=== PATIENT | female | born 1965 | race Caucasian/White ===

== ENCOUNTER 2016-10-18 08:43 | Day surgery (SDC) | payer OTHER ==
[~2016-10-18] VITALS: Ht 167.6 cm; Wt 70.3 kg
[~2016-10-18 08:43] MED LIST: ASPI-973 PO; FERR325T40 PO; HYDR200T5 PO; LISI2.5T PO; Lactated Ringer's 1,000 ML IV ONE; Lactated Ringer's 1,000 ML IV SCH; METF500T4 PO; MYCO500T PO; PANT40TA2 PO; PRE10 PO; SITA100T12 PO; SITA1TAB2 PO; [UNRECOGNIZED DRUG - CODE] PO
[2016-10-18] MEDS ORDERED: Propofol 10,000 mCg/mL 20 mL Inj ONE (08:44)
[2016-10-18 09:23] VITALS: BP 134/88; PULSE 85; RESP 14; O2SAT 100
[2016-10-18] MEDS ORDERED: INSU100I13 SUBQ (09:30)
--- NOTE | 2016-10-18 10:12 | PCM.HPANE ---
Patient Data Surgeon Admitting Provider: Attending Provider:Keenan Holbrook MD Primary Care Physician:Rafael Martel Other Provider:Doreen Trujillo Anesthesia Reason for Visit GERD Ht/WT & BMI Height (Feet): 5 Height (Inches): 6 Weight (Kilograms): 70.31 Body Mass Index 24.00 Allergies Coded Allergies: No Known Drug Allergies (Verified Allergy, Unknown, 10/16/16) Past Anesthesia History Anesthesia History: Denies:: Abnormal Airway, Anesthesia Reactions, Difficult Intubation, Fam Anesthesia Reaction, Fam Malignant Hypertherm, Malignant Hyperthermia Diabetes History Hx Diabetes?: Yes Current Bedside Blood Glucose: 91 MRSA 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) Medications Blood Thinner: Aspirin Home Meds Incl Beta Hoang: No Reported Medications Insulin Glargine (Lantus U100 Solostar Insulin Pen)100 Unit/1 Ml Insuln.pen28 Unit SUBQ DAILY #1 PENINJ Ref 0 10/18/16 Prednisone (PredniSONE)10 Mg Cmwrjj89 Mg PO DAILY Ref 0 10/16/[address] (Protonix)40 Mg Qxqbas34 Mg PO DAILY Ref 0 10/16/16 Nifedipine ER (Procardia XL)90 Mg Fdnlit32 Mg PO DAILY Ref 0 10/16/16 Lisinopril 2.5 Mg Tablet2.5 Mg PO DAILY 30 Days Ref 0 10/16/16 Sitagliptin/Metformin 50-500 mg (Janumet 50-500 mg)1 Each Tablet1 Tablet PO BID 10/16/16 Ferrous Sulfate (Iron)325 Mg Cemhnr635 Mg PO 10/16/16 Hydroxychloroquine Sulfate 200 Mg Yyhzcm354 Mg PO DAILY #30 TABLET Ref 0 10/16/16 Mycophenolate Mofetil (Cellcept)500 Mg Htoumu298 Mg PO 10/16/16 Aspirin 81 Mg Meedtn23 Mg PO DAILY Ref 0 10/16/16 Discontinued Reported Medications Metformin 500 Mg Hpcgxq859 Mg PO BID Ref 0 10/16/16 Sitagliptin Phos (Januvia)100 Mg Jidvze682 Mg PO DAILY Ref 0 10/16/16 Last Time Dose Received Took protonix today; no other meds No missed doses of prednisone History History of ENT Problems?: No HEENT History: Denies:: Abnormal Airway Difficult Intubation Dysphagia Hearing Problem Denture Type: None Teeth Condition: Within Normal Limits Hx of Heart Problems?: Yes Cardiovascular History: Positive for:: Hypertension Denies:: AICD Atrial Fibrillation Chest Pain Pacemaker Valvular Heart Disease Other Cardiac History: HX OF TACHYCARDIA Other History/Comments No CP Hx of Respiratory Problem?: Yes Respiratory History: Positive for:: Hemoptysis Pneumonia Denies:: Asthma COPD Tuberculosis Other Resp Pertinent History: INTERSTITAL LUNG DISEASE R/T AUTOIMMUNE DISORDER Other History/Comment Breathing is at baseline Hx Neurologic Problems?: No Neurological History: Denies:: CVA Hx of GI Problems?: Yes Other History/Comment GERD - no current sx's Hx of Problems?: No Female Hx: Denies:: Currently Hx Musculoskeletal Problems?: Yes Musculoskeletal History: Positive for:: Joint Replacement (R FINGER JOINT) Denies:: Fibromyalgia Other History/Comment dermatomyositis; affects joints Psycho Social History: Denies:: Anxiety Hx Depression Hx Surgeries?: Yes (BILAT FINGER AMPUTATION, R METATARSIL JOINT REPLACEMENT) Hx Any Other Health Problems?: Yes Hx Diabetes: YesBedside Blood Glucose: 91 Hx Alcohol Use: Yes (RARE) Stop/Bang Treated for Sleep Apnea?: No Do You Have a CPAP Machine?: No S-Snoring: Do You Snore Loudly: No T-Tired: feel tired, fatigued: Yes O-Obsered: Observed not breath: No P-Blood Pressure: treated: Yes B- Body Mass Index > 35 kg/m2: No A- Age over 50: No N- Neck Large Circumference: No G- Gender Male: No RACHANA Total Score: 2 Risk Assessment Category Category 1A: Patient has history of documented sleep apnea, and HAS NOT received any narcotic, sedative or anesthesia administration during this stay. Category 1B: Patient has history of documented sleep apnea, and HAS received any narcotic , sedative or anesthesia administration during this stay Category 2: Patient has SUSPECTED Obstructive Sleep Apnea, and HAS received any narcotic , sedative or anesthesia administration during this stay. Category 3: Patient has SUSPECTED Obstructive Sleep Apnea and HAS NOT received narcotic, sedative or anesthesia administration during this stay. Category 4: Outpatient in Procedural Areas with known sleep apnea or who screen positive for High Risk via the STOP/BANG questionnaire. Exam Exam Vital Signs Vital Signs Date Time Temp Pulse Resp B/P Pulse Ox O2 Delivery O2 Flow Rate FiO2 10/18/16 09:23 36.3 85 14 134/88 100 Room Air General Appearance: Alert, Oriented X3 HEENT/AIRWAY: MP 2, Neck Movement (FROM) Lungs: Clear to Auscultation, Clear to Percussion Heart: Exam Unremarkable, Regular Rate/Rhythm Meds/Labs/Diagnostics Bedside Blood Glucose: 91 Plan Impression Patient chart reviewed, patient interviewed and anesthestic plan with risks, benefits, and alternatives discussed, and informed consent obtained. ASA Physical Status: ASA3 Severe Disease (dermatomyositis) Anesthetic Plan: MAC Bene/Risks/Altern/Consents: Yes HP Complete Prior to Induction: Yes Dylan Hurtado MD Oct 18, 2016 10:12
--- NOTE | 2016-10-18 10:30 | PCM.ANEP1 ---
Post Anesthesia PACU Phase 1 Assessment Vital Signs Vital Signs Date Time Temp Pulse Resp B/P Pulse Ox O2 Delivery O2 Flow Rate FiO2 10/18/16 09:23 36.3 85 14 134/88 100 Room Air Anesthetic Administered: MAC Level of Alertness: Awake, talking QUIROZ's with Equal Strength: Yes Pain: No Nausea or Vomiting: No CV Function & Hydration Stable: Yes Airway Device: Oxygen Delivery: Room Air Lungs: Clear to Auscultation, Clear to Percussion PACU Phase 2 Assessment Complications: No Follow up Care: No Patient Instructions Provided: N/A Comments See anesth record for PACU VS. PACU VSS Dylan Hurtado MD Oct 18, 2016 10:30
[2016-10-18 10:40] VITALS: BP 144/89; PULSE 85; RESP 16; O2SAT 100
--- NOTE | 2016-10-18 11:12 | ENDO ---
[address] [address] ENDOSCOPY PROCEDURE PATIENT: FADUMO LANDIN : 1965 MR#: [id number] ADMIT: 10/18/2016 JOB ID: [id number] DATE OF SERVICE: 10/18/2016 PROCEDURE PERFORMED: Esophagogastroduodenoscopy. INDICATION: Gastroesophageal reflux. ASA CLASSIFICATION, MALLAMPATI SCORE AND MEDICATIONS: The patient's ASA classification, Mallampati score and medications per Dr. Dylan Hurtado's anesthesia note. INSTRUMENT USED: GIF-Q180 upper endoscope. PROCEDURE DETAILS: After informed consent was obtained, the patient was brought into the GI suite, where she was placed on oxygen via nasal cannula and monitored with continuous pulse oximeter, telemetry and blood pressure monitoring. A time-out was performed. Then, she was placed in the left lateral decubitus position, and medications were administered for sedation. A bite block was placed. A standard EGD scope was inserted through the bite block and advanced under direct visualization to the second portion of the duodenum without difficulty. FINDINGS: 1. Normal appearing duodenal bulb, first and second portions. 2. Normal appearing pylorus, antrum and gastric body. 3. Retroflexed views in the gastric body revealed normal appearing cardia and fundus. 4. Multiple random biopsies were obtained throughout the antrum and body of stomach. 5. Normal appearing GE junction. 6. Normal appearing esophagus. IMPRESSION: Normal esophagogastroduodenoscopy exam to second portion of duodenum. RECOMMENDATIONS: 1. Consider avoiding NSAIDs, if able. 2. Continue PPI daily. 3. Follow up in GI clinic. COMPLICATIONS: None. ESTIMATED BLOOD LOSS: Less than 5 mL.
--- NOTE | 2016-10-19 16:41 | PATH ---
SURGICAL PATHOLOGY Attending Physician:Marcel Conte CASE STATUS: Signed Out PATIENT NAME: FADUMO LANDIN PID: [id number] : 1965 DATE COLLECTED:10/18/2016 16:58 SPECIMEN: Gastric, Biopsy CLINICAL HISTORY: 1). RANDOM GASTRIC BIOPSY (RULE OUT H.PYLORI) FINAL DIAGNOSIS: Random Stomach, Biopsies: Gastric antral and body mucosa with no diagnostic abnormality. Helicobacter organisms not identified. Negative for intestinal metaplasia, dysplasia, or malignancy. ICD10: K21.0 GROSS DESCRIPTION: The specimen is received in one formalin filled container labeled with the patient's name, sublabeled "gastric" and consists of 3 portions of tissue which aggregate to 0.3 x 0.3 x 0.2 CM. The specimen is entirely submitted in one cassette. 10/18/2016DC ICD-9 CODES: CPT CODES: 1: 22897 Electronically Signed Out Lamonte Li MD, Ph.D. [facility] [address], [place] [address] Technical component performed at [facility], [facility] [address], [address]
== END 2016-10-18 23:59 | disposition home or self-care (01) ==
LOC: END 08:43
PROVIDERS: ATTEND Internal Medicine Gastroenterology
DX: K21.9 Gastro-esophageal reflux disease without esophagitis (principal); E11.9 Type 2 diabetes mellitus without complications; J84.9 Interstitial pulmonary disease, unspecified; Z79.84 Long term (current) use of oral hypoglycemic drugs; Z79.82 Long term (current) use of aspirin; Z79.52 Long term (current) use of systemic steroids
CPT/HCPCS: 43239; 88305; J2704; J7120